=== PATIENT | male | born 1985 | race Caucasian/White ===

== ENCOUNTER 2016-06-24 14:11 | Emergency (ER) | payer BC, OTHER ==
[2016-06-24 14:48] VITALS: BP 135/87; PULSE 74; RESP 20; TEMP 98.3
[2016-06-24] MEDS ORDERED: KETOROLAC 60 MG/2 ML VIAL IM STA (16:04)
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
== END 2016-06-24 16:17 | disposition home or self-care (01) ==
LOC: EC 14:11
DX: M62.830 Muscle spasm of back (principal); F17.200 Nicotine dependence, unspecified, uncomplicated; Z79.899 Other long term (current) drug therapy; Z91.041 Radiographic dye allergy status
CPT/HCPCS: 99283; 96372; J1885

== ENCOUNTER 2017-03-22 21:22 | Emergency (ER) | payer BC, OTHER ==
[2017-03-22 21:54] VITALS: RESP 16
[2017-03-22] MEDS ORDERED: KETOROLAC 30 MG/ML 1 ML VIAL IM STA (21:59)
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
[2017-03-22 23:02] VITALS: BP 135/85; PULSE 88; TEMP 97.8
== END 2017-03-22 23:02 | disposition home or self-care (01) ==
LOC: EC 21:22
DX: S16.1XXD Strain of muscle, fascia and tendon at neck level, subsequent encounter (principal); S39.012D Strain of muscle, fascia and tendon of lower back, subsequent encounter; F17.200 Nicotine dependence, unspecified, uncomplicated; Z79.899 Other long term (current) drug therapy; Z91.041 Radiographic dye allergy status; V47.5XXD Car driver injured in collision with fixed or stationary object in traffic accident, subsequent encounter; Y92.410 Unspecified street and highway as the place of occurrence of the external cause
CPT/HCPCS: 99284; 96372; J1885

== ENCOUNTER 2017-03-26 21:50 | Emergency (ER) | payer BC, OTHER ==
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
[2017-03-26 23:38] VITALS: BP 127/90; PULSE 93; RESP 18; TEMP 98
== END 2017-03-26 22:30 | disposition home or self-care (01) ==
LOC: EC 21:50
DX: S39.012D Strain of muscle, fascia and tendon of lower back, subsequent encounter (principal); S29.012D Strain of muscle and tendon of back wall of thorax, subsequent encounter; F17.200 Nicotine dependence, unspecified, uncomplicated; Z79.899 Other long term (current) drug therapy; Z91.041 Radiographic dye allergy status; V99.XXXD Unspecified transport accident, subsequent encounter
CPT/HCPCS: 99283